=== PATIENT | female | born 1995 | race Caucasian/White ===

== ENCOUNTER 2017-04-28 12:04 | Emergency (ER) | payer OTHER ==
[~2017-04-28] VITALS: Ht 162.6 cm; Wt 77.2 kg
[2017-04-28 12:04] VITALS: BP 114/57
[2017-04-28] MEDS ORDERED: bcp PO (12:09)
== END 2017-04-28 12:49 | disposition home or self-care (01) ==
LOC: M ED 12:04
DX: H61.22 Impacted cerumen, left ear (principal); Z79.3 Long term (current) use of hormonal contraceptives